=== PATIENT | male | born 1960 | race Caucasian/White ===

== ENCOUNTER → 2016-08-08 | Outpatient (CLI) | payer OTHER | LOC: BMCIMAGING 15:35 | PROVIDERS: ATTEND Internal Medicine | DX: R55 Syncope and collapse (principal) ==

== ENCOUNTER → 2016-08-14 | Outpatient (CLI) | payer OTHER | LOC: BMCIMAGING 13:30 | PROVIDERS: ATTEND Internal Medicine | DX: R55 Syncope and collapse (principal); R42 Dizziness and giddiness ==